=== PATIENT | male | born 1995 | race Caucasian/White ===

== ENCOUNTER 2019-12-02 20:46 | Emergency (ER) | payer OTHER ==
[~2019-12-02] VITALS: Ht 182.9 cm; Wt 86.2 kg
[2019-12-02 20:49] VITALS: Ht 182.9 cm; Wt 86.2 kg
[2019-12-02 22:22] VITALS: BP 130/75
== END 2019-12-02 22:22 | disposition home or self-care (01) ==
LOC: ED 20:46
DX: T75.89XA Other specified effects of external causes, initial encounter (principal); X58.XXXA Exposure to other specified factors, initial encounter; Y93.89 Activity, other specified; Y92.89 Other specified places as the place of occurrence of the external cause; Y99.8 Other external cause status; F12.90 Cannabis use, unspecified, uncomplicated